=== PATIENT | female | born 1960 | race Caucasian/White ===

== ENCOUNTER 2018-11-30 11:15 | Emergency (ER) | payer OTHER | END 2018-11-30 12:30 | disposition home or self-care (01) | LOC: E/R 11:15 | DX: I10 Essential (primary) hypertension (principal); E11.9 Type 2 diabetes mellitus without complications; Z79.84 Long term (current) use of oral hypoglycemic drugs | CPT/HCPCS: 99283; Z7502 ==

== ENCOUNTER 2019-02-25 13:43 | Emergency (ER) | payer SELFPAY, OTHER | END 2019-02-25 19:05 | disposition left against medical advice (07) | LOC: E/R 13:43 | DX: Z53.21 Procedure and treatment not carried out due to patient leaving prior to being seen by health care provider (principal) | CPT/HCPCS: 82962 ==